=== PATIENT | male | born 1955 | race Caucasian/White ===

== ENCOUNTER 2019-05-24 10:59 | Outpatient (CLI) | payer MEDICARE ==
[2019-05-24 11:23] LABS: Estimated GFR-MDRD - POC Greater than 90
--- NOTE | 2019-05-24 11:45 | CT ---
CT NECK SOFT TISSUES, WITH CONTRAST: CLINICAL INDICATION: Palpable right periauricular mass. COMPARISON: No prior comparison imaging. FINDINGS: Aerodigestive tract:Free from significant mass effect. Parotid gland: Prominent volume of the parotid glands bilaterally. There are several surrounding aleja parotid lymph nodes, which are within the region of palpable concern on the right. Submandibular glands:No intrinsic mass, or inflammation. Lymph nodes: Periparotid lymph nodes are present, as discussed above. There are no pathologically enl arged lymph nodes identified. Thyroid gland:Unremarkable. Incidental findings:Apical blebs of the visualized lungs. Vascular calcification. IMPRESSION: Prominent volume of the parotid glands. There are multiple periparotid lymph nodes, some of which are difficult to distinguish from the immediately adjacent right parotid gland although this does reside within the region of palpable concern. No discrete mass is otherwise depicted. Transcribed Date/Time: 05/24/2019 12:29 PM
== END 2019-05-24 11:00 | disposition home or self-care (01) ==
LOC: BICCT 10:59
PROVIDERS: ATTEND Otolaryngology Plastic Surgery within the Head & Neck
DX: R22.1 Localized swelling, mass and lump, neck (principal)
CPT/HCPCS: 70491; 82565

== ENCOUNTER 2019-07-18 12:58 | Day surgery (SDC) | payer MEDICARE ==
[2019-07-17 15:23] VITALS: BMI 29.9
[~2019-07-18 12:58] MED LIST: Lidocaine 1% PF 5 ML VIAL ONE; Sodium Bicarbonate 2.5 MEQ/5 ML VIAL ONE
[2019-07-18 14:30] VITALS: BP 115/69; TEMP 98.4
--- NOTE | 2019-07-18 15:16 | ULT ---
EXAM: US Thyroid Needle Bx PROVIDED CLINICAL HISTORY: Spine anomaly. COMPARISON: None FINDINGS: AP view of the thoracolumbar spine is obtained. No vertebral anomalies are seen. There is slight S-sh aped curvature of the thoracolumbar spine. There is approximately 6 degrees of right convex curvature involving the thoracic spine centered at the T8 vertebral body. Less than 5 degrees of left convex curvature of the lumbar spine is noted. No other osseous abnormality. IMPRESSION: Slight S-shaped curvature thoracolumbar spine as described above.
--- NOTE | 2019-07-19 10:42 | ULT ---
ULTRASOUND GUIDED NEEDLE BIOPSY: Date: 07/18/19 HISTORY: Right parotid gland mass. COMPARISON: None. FINDINGS: The patient was brought to the ultrasound suite. All questions were answered. Informed consent obtain ed. Timeout performed. Patient's neck was prepped and draped in the normal sterile fashion. Using a 25 gauge needle, a total of two aspirations to the enlarged right parotid gland lymph node was obtained. The patient tolerate d the procedure well and without complication. Samples given to the staff cytotechnologist. IMPRESSION: Technically successful ultrasound guided right periparotid enlarged lymph node aspiration. POS: [facility]
== END 2019-07-18 14:15 | disposition home or self-care (01) ==
LOC: ULT 12:58
PROVIDERS: ATTEND Otolaryngology Plastic Surgery within the Head & Neck
DX: R22.1 Localized swelling, mass and lump, neck (principal); F17.210 Nicotine dependence, cigarettes, uncomplicated
CPT/HCPCS: 60100; 76942; 88173; J2001

== ENCOUNTER 2025-05-29 08:40 | Day surgery (SDC) | payer MEDICARE ==
[2025-05-15 10:01] VITALS: BMI 32.1
[2025-05-29] MEDS ORDERED: LevoFLOXacin D5W 500 mg (100 mL) BAG ONE (10:53)
[2025-05-29 11:10] LABS: INR-International Normal Ratio 1.0; Prothrombin Time 13.6 sec (12.0-14.7)
[2025-05-29] MEDS ORDERED: PROPOFOL 20 ML ONE (11:11)
[2025-05-29] MEDS ORDERED: fentaNYL PF 100 MCG/2 ML SYRINGE ONE (11:12)
[2025-05-29] MEDS ORDERED: diphenhydrAMINE 50 MG/ML VIAL ONE (11:37)
[2025-05-29] MEDS ORDERED: cefTRIAXone (ROCEPHIN) 1 GM VIAL ONE (11:37)
[2025-05-29] MEDS ORDERED: Ondansetron PF 4 MG/2 ML Vial ONE (11:56)
[2025-05-29] MEDS ORDERED: Rocuronium Bromide 10 MG/ML (10ML VIAL) ONE ×2 (12:16→12:19)
[2025-05-29] MEDS ORDERED: SUGAMMADEX SODIUM 200 MG/2 ML VIAL ONE (12:42)
[2025-05-29] MEDS ORDERED: Oxybutynin 5 MG TAB ONE (13:25)
== END 2025-05-29 14:50 | disposition home or self-care (01) ==
LOC: SDC 08:40
PROVIDERS: ATTEND Urology
PROC: 0V508ZZ Destruction of Prostate, Via Natural or Artificial Opening Endoscopic (ICD-10-PCS; principal; 2025-05-29)
DX: N40.1 Benign prostatic hyperplasia with lower urinary tract symptoms (principal); N13.8 Other obstructive and reflux uropathy; J44.9 Chronic obstructive pulmonary disease, unspecified; Z88.1 Allergy status to other antibiotic agents; Z91.040 Latex allergy status; Z79.01 Long term (current) use of anticoagulants
CPT/HCPCS: 52648; 85610; A4333; J0696; J1100; J1200; J1956; J2250; J2405; J2704; J7620

== ENCOUNTER 2025-06-16 14:12 | Inpatient (IN) | payer MEDICARE ==
[~2025-06-16 14:12] MED LIST changes: +Iopamidol 370 76% 100 ML VIAL ONE; -Lidocaine 1% PF 5 ML VIAL ONE; -Sodium Bicarbonate 2.5 MEQ/5 ML VIAL ONE
[2025-06-16 15:17] LABS: #Basophils Less than 0.03 10x3/uL (0.0-0.2); #Eosinophils Less than 0.03 10x3/uL (0.0-0.7); #Monocytes 0.39 10x3/uL (0.11-0.59); #Neutrophils 2.27 10x3/uL (1.40-6.50); %Basophils 0.6 % (0.0-1.0); %Eosinophils 0.3 % (0.0-10.0); %Lymphocytes 20.8 % (21.0-51.0); %Monocytes 11.4 % (0.0-10.0); %Neutrophils 66.6 % (42.0-75.0); Hematocrit 33.2 % (42.0-52.0); Hemoglobin 10.9 g/dL (14.0-18.0); Mean Corpuscular Hemoglobin 28.0 pg (27.0-31.0); Mean Corpuscular Volume 85.3 fL (78.0-98.0); Platelet Count 159 10x3/uL (130-400); Red Blood Cell (RBC) Count 3.89 mill/uL (4.70-6.10); White Blood Cell (WBC) Count 3.41 10x3/uL (4.8-10.8)
[2025-06-16 15:36] LABS: ALT (SGPT) 10 U/L (Less than 45); AST (SGOT) 29 U/L (11-34); Albumin 3.6 g/dL (3.1-4.5); Alkaline Phosphatase 86 U/L (40-110); Anion Gap 13 mmol/L (10-20); BUN (Urea Nitrogen) 12 mg/dL (8.4-25.7); Bilirubin, Total 1.5 mg/dL (0.3-1.2); Calc. Creatinine Clearance 0 mL/min (70-130); Calcium 8.6 mg/dL (7.8-10.44); Carbon Dioxide 27 mmol/L (23-31); Chloride 102 mmol/L (98-107); Globulin 3.0 g/dL (2.4-3.5); Glucose 101 mg/dL (83-110); Potassium 3.8 mmol/L (3.5-5.1); Sodium 138 mmol/L (136-145)
[2025-06-16 15:40] LABS: Troponin I Less than 0.010 ng/mL (< 0.028)
[2025-06-16] MEDS ORDERED: Albuterol 2.5 MG (3 mL) NEB ONE ×2 (15:49→17:22)
[2025-06-16] MEDS ORDERED: Magnesium 2 GM/50 ML BAG (IN WATER) ONE (15:49)
[2025-06-16 19:41] LABS: INR-International Normal Ratio 1.0; Prothrombin Time 13.7 sec (12.0-14.7)
[2025-06-16 19:43] LABS: PTT 35.4 sec (22.9-36.1)
[2025-06-16 22:45] VITALS: BMI 29.4
[2025-06-17] MEDS: Azithromycin 250 MG TAB PO SCH (01:26)
[2025-06-17 03:07] LABS: Influenza A by NAA Not Detected (NotDetected); Influenza B by NAA Not Detected (NotDetected); SARS-CoV-2 NAA Rapid Test Not Detected (NotDetected)
[2025-06-17 05:16] LABS: Hematocrit 34.0 % (42.0-52.0); Hemoglobin 11.1 g/dL (14.0-18.0); Mean Corpuscular Hemoglobin 28.2 pg (27.0-31.0); Mean Corpuscular Volume 86.5 fL (78.0-98.0); Platelet Count 177 10x3/uL (130-400); Red Blood Cell (RBC) Count 3.93 mill/uL (4.70-6.10); White Blood Cell (WBC) Count 1.79 10x3/uL (4.8-10.8)
[2025-06-17 05:25] LABS: INR-International Normal Ratio 1.1; Prothrombin Time 14.1 sec (12.0-14.7)
[2025-06-17 05:26] LABS: PTT 40.8 sec (22.9-36.1)
[2025-06-17 05:35] LABS: ALT (SGPT) 11 U/L (Less than 45); AST (SGOT) 27 U/L (11-34); Albumin 3.4 g/dL (3.1-4.5); Alkaline Phosphatase 89 U/L (40-110); Anion Gap 13 mmol/L (10-20); BUN (Urea Nitrogen) 12 mg/dL (8.4-25.7); Bilirubin, Total 1.4 mg/dL (0.3-1.2); Calc. Creatinine Clearance 110 mL/min (70-130); Calcium 8.4 mg/dL (7.8-10.44); Carbon Dioxide 26 mmol/L (23-31); Chloride 102 mmol/L (98-107); Globulin 3.0 g/dL (2.4-3.5); Glucose 148 mg/dL (83-110); Magnesium 2.5 mg/dL (1.6-2.6); Potassium 4.0 mmol/L (3.5-5.1); Sodium 137 mmol/L (136-145)
[2025-06-17 05:52] LABS: Giant Platelets 1.1 % (0-5); Platelet Adequacy Comment Platelets Normal; Polychromasia SLIGHT = 2-3 cells HPF (0-2)
[2025-06-17] MEDS: Cholecalciferol 1,000 UNITS (25 MCG) TAB PO SCH (08:48)
[2025-06-17] MEDS: predniSONE 20 MG TAB PO SCH (08:49)
[2025-06-17] MEDS: Pantoprazole 40 MG DR.TAB PO SCH (08:49)
[2025-06-17] MEDS: Furosemide 20 MG TAB PO SCH (08:49)
[2025-06-17] MEDS ORDERED: Azithromycin 250 MG TAB PO SCH (09:00)
[2025-06-17 10:20] LABS: Bilirubin, Direct 0.6 mg/dL (0.1-0.3); Bilirubin, Total 1.5 mg/dL (0.3-1.2)
[2025-06-17] MEDS: Simethicone 40 MG/0.6 ML Drop 30 ML BOT PO PRN (16:24)
[2025-06-17] MEDS: Acetaminophen 325 MG TAB PO PRN (20:08)
[2025-06-18 06:03] LABS: #Basophils Less than 0.03 10x3/uL (0.0-0.2); #Eosinophils Less than 0.03 10x3/uL (0.0-0.7); #Monocytes 0.44 10x3/uL (0.11-0.59); #Neutrophils 6.02 10x3/uL (1.40-6.50); %Basophils 0.1 % (0.0-1.0); %Eosinophils 0.0 % (0.0-10.0); %Lymphocytes 10.3 % (21.0-51.0); %Monocytes 6.1 % (0.0-10.0); %Neutrophils 82.9 % (42.0-75.0); Hematocrit 34.0 % (42.0-52.0); Hemoglobin 10.8 g/dL (14.0-18.0); Mean Corpuscular Hemoglobin 27.8 pg (27.0-31.0); Mean Corpuscular Volume 87.4 fL (78.0-98.0); Platelet Count 230 10x3/uL (130-400); Red Blood Cell (RBC) Count 3.89 mill/uL (4.70-6.10); White Blood Cell (WBC) Count 7.26 10x3/uL (4.8-10.8)
[2025-06-18 06:13] LABS: INR-International Normal Ratio 1.0; Prothrombin Time 13.7 sec (12.0-14.7)
[2025-06-18 06:14] LABS: PTT 30.9 sec (22.9-36.1)
[2025-06-18 06:16] LABS: ALT (SGPT) 11 U/L (Less than 45); AST (SGOT) 30 U/L (11-34); Albumin 3.5 g/dL (3.1-4.5); Alkaline Phosphatase 85 U/L (40-110); Anion Gap 14 mmol/L (10-20); BUN (Urea Nitrogen) 19 mg/dL (8.4-25.7); Bilirubin, Total 1.3 mg/dL (0.3-1.2); Calc. Creatinine Clearance 95 mL/min (70-130); Calcium 9.1 mg/dL (7.8-10.44); Carbon Dioxide 28 mmol/L (23-31); Chloride 102 mmol/L (98-107); Globulin 3.1 g/dL (2.4-3.5); Glucose 100 mg/dL (83-110); Potassium 4.0 mmol/L (3.5-5.1); Sodium 140 mmol/L (136-145)
[2025-06-18] MEDS: Enoxaparin 40 MG (0.4 mL) SYRINGE SC SCH (08:16)
[2025-06-18] MEDS: Azithromycin 250 MG TAB PO SCH (08:19)
[2025-06-18] MEDS ORDERED: Azithromycin 250 MG TAB PO SCH (09:00)
[2025-06-18 12:46] VITALS: BP 140/75; TEMP 98.6
== END 2025-06-18 16:15 | disposition home or self-care (01) | DRG 192 ==
LOC: ERS 14:12 → OBS 17:27 → OBSVTOIN 06-17 13:40
PROVIDERS: ADMIT Family Medicine; ATTEND Family Medicine
DX: J44.1 Chronic obstructive pulmonary disease with (acute) exacerbation (principal); I48.0 Paroxysmal atrial fibrillation; E03.9 Hypothyroidism, unspecified; I10 Essential (primary) hypertension; D72.819 Decreased white blood cell count, unspecified; K21.9 Gastro-esophageal reflux disease without esophagitis; F17.210 Nicotine dependence, cigarettes, uncomplicated; N40.0 Benign prostatic hyperplasia without lower urinary tract symptoms; Z88.1 Allergy status to other antibiotic agents; Z91.040 Latex allergy status; Z79.890 Hormone replacement therapy; Z79.899 Other long term (current) drug therapy; Z79.01 Long term (current) use of anticoagulants; Z98.890 Other specified postprocedural states; Z98.1 Arthrodesis status
CPT/HCPCS: 36415; 71045; 71275; 74018; 80053; 82247; 82248; 83735; 83880; 84145; 84484; 85025; 85610; 85730; 87426; 87636; 93005; 94640; 96365; 96372; 96375; G0378; J1650; J2919; J3475; J7512; J7611; J7620; Q0162; Q9967